=== PATIENT | female | born 1930 | race Caucasian/White ===

== ENCOUNTER 2016-07-19 18:53 | Emergency (ER) | payer MEDICARE, MEDICAID ==
[2016-07-19 19:05] VITALS: BP 167/50; PULSE 98; RESP 21; O2SAT 100
--- NOTE | 2016-07-19 19:34 | ED.REPORT ---
HPI-Trauma Minor / Fall Date of Service Jul 19, 2016 ED Provider: Geronimo Garcia MD An 85 year old female with a history of dementia, hypertension, UTI, and brain surgery for clot removal one month ago is brought to the ED via EMS due to a fall. The pt was found on the ground with her wheelchair on top of her by staff at [facility] where she resides. Per pt's son, were attending another individual in the dining room when the pt attempted to stand and fell. She now has an abrasion on the left side of her head. The pt's son states that she has a history of falls. Nursing Notes Stated Complaint: GLF Chief Complaint: Head, Face, Neck Trauma Nursing Notes Reviewed: Yes Allergies: Coded Allergies: Egg Derived (Unverified Allergy, Unknown, 06/21/16) Estrogens (Unverified Allergy, Unknown, 06/21/16) coconut (Unverified Allergy, Unknown, 06/21/16) codeine (Unverified Allergy, Unknown, 06/21/16) erythromycin base (Unverified Allergy, Unknown, 06/21/16) fluticasone (Unverified Allergy, Unknown, 06/21/16) gabapentin (Verified Allergy, Unknown, 06/21/16) lithium (Unverified Allergy, Unknown, 06/21/16) peanut (Unverified Allergy, Unknown, 06/21/16) salmeterol (Unverified Allergy, Unknown, 06/21/16) sumatriptan (Unverified Allergy, Unknown, 06/21/16) General Time Seen by MD: 19:30 Chief Complaint Fall Hx Obtained From: Patient, Son, EMS Arrived By: Ambulance Onset Occurred: 31 - 45 minutes ago Symptom Duration: Since onset Recent Healthcare: Recent doctor visit, Recent hospitalization Similar Sx Previous: Yes Risk Factors Head CT Imaging Patient Presents WITHOUT: Loss of Conciousness, PROCEED W/ CONSIDERATIONS Consider Non Contrast CT for: >/= 60 yo Age WITHOUT LOCNo Auto vs Pedestrian, No Fall > 3ft., No Vomiting RF Statements: Risk factors reviewed Past Medical History Past Medical History Notes: Marc Valenzuela (son):[phone], Past Medical History Dementia Hx of UTIs Hypertension Falls Past Surgical History brain surgery for clot removal 05/2016 Family History Noncontributory Social History The patient lives at [facility] in the dementia care unit Other Social History: Good social support, Local resident Ambulatory Status Independent Review of Systems Unable to Obtain ROS Mental status Physical Exam Initial Vital Signs Vital Signs (First) Date Time Temp Pulse Resp B/P Pulse Ox O2 Delivery O2 Flow Rate FiO2 07/19/16 19:05 37.6 98 21 167/50 100 07/19/16 20:04 Room Air Initial VS: Reviewed General/Constitutional: Awake, Alert moving all extremities Neck: Atraumatic, Supple, Full range of motion Head / Eyes: Normocephalic, PERRL, EOMI left temporal contusion ENT: Atraumatic, Airway patent, Mucous membranes moist Respiratory / Chest: Atraumatic, Breath sounds NL, Breath sounds = bilat, No respiratory distress Cardiovascular: Heart rate NL, Regular rhythm, Heart sounds NL Abdomen: Atraumatic, Soft, Non-tender Back: Atraumatic, Full range of motion Upper Extremity / MS: Atraumatic, Full range of motion Lower Extremity / Pelvis / MS: Atraumatic, Full range of motion Skin: Color NL, No rash, Warm, Dry Neurologic: Speech NL, No motor deficits, No sensory deficits Psychiatric: Affect NL, Mood NL Interpretation & Diagnostics CT Head Interpretation IMPRESSION: No acute intracranial abnormality is identified. No recurrence of the right subdural hematoma is seen. Number holes are present. There is now a subcutaneous hematoma in the left frontoparietal region. Atrophic changes are present as before. Dictated by: Ever Jorge M.D. on 07/19/2016 at 20:37 Approved by: Ever Jorge M.D. on 07/19/2016 at 20:41 Interpretation / Wet Read by: Interpret - Radiologist Re-Eval/Medical Decision Source of Hx: Old records Re-Evaluation/Progress : Time of Eval: 21:17 Patient Status: Condition improved Re-Evaluation/Progress Note: Pt rechecked, who is resting comfortably. Pt and family are informed of radiology results, diagnosis, and plan for discharge. The pt and family understand and agree with the plan. All questions are addressed at this time. Counseled Regarding: Diagnosis, Lab results, Need for follow-up, When/why to return to ED Discharge & Departure Impression: Primary Impression: Contusion Encounter type: initial encounter Contusion area: head Contusion of head detail: scalp Qualified Code: S00.03XA - Contusion of scalp, initial encounter Additional Impression: Fall from ground level Disposition: Home Discharge Condition All VS Reviewed: Yes Condition: Stable Patient Instructions: Minor Head Injury (ED) Additional Instructions: In the ED today we did an exam and CT brain. there is a bump on her scalp but no intracranial injury. Resume previous care. Return to ED for severe headache , if not alert to baseline or if having frequent vomiting. Referrals: Milton Jiménez MD (PCP) Scribe Attestation Portions of this note were transcribed by Linda Ibarra I, Dr. Garcia personally performed the history, physical exam and medical decision-making; I reviewed and confirmed the accuracy of the information in the transcribed note. Signed by: Juliocesar Sands, 07/19/16 and 21:24. copies to: Milton Jiménez MD, Donald L MD Jul 19, 2016 19:34 LINDA IBARRA Jul 19, 2016 20:06
[2016-07-19 20:04] VITALS: BP 125/89; PULSE 97; RESP 17; O2SAT 100
--- NOTE | 2016-07-19 20:43 | DRSVH ---
PROCEDURE: CT BRAIN WITHOUT CONTRAST ([id number]) INDICATIONS: head injury/ground level fall TECHNIQUE: Noncontrast 4.5 mm thick angled axial sections acquired from the foramen magnum to the vertex, with c oronal reformats. COMPARISON: [facility], CT, CT BRAIN WO CON, 06/21/2016, 10:59. FINDINGS: Image quality: Excellent. CSF spaces: Basal cisterns are patent. No extra-axial fluid collections. The ventricles are symmet lizeth in size and shape. Brain: No intracranial bleeds or masses. There is cerebral volume loss for age, with resultant vent ricular and sulcal prominence. There are periventricular and deep white matter chronic small vessel ischemic changes. 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 It is unchanged. The subdu ral hematoma seen previously over the right frontoparietal region has been evacuated. There is intrac ranial internal carotid artery atherosclerosis. Skull and face: Since the previous study 2 peter holes have been placed in the right frontal cortex. Calvarium and visualized facial bones appear intact, without suspicious lesions. Sinuses: Visualized sinuses and mastoids are clear. IMPRESSION: No acute intracranial abnormality is identified. No recurrence of the right subdural hematoma is seen . Number holes are present. There is now a subcutaneous hematoma in the left frontoparietal region. Atrophic changes are present as before. Dictated by: Ever Jorge M.D. on 07/19/2016 at 20:37 Approved by: Ever Jorge M.D. on 07/19/2016 at 20:41
[2016-07-19 21:31] VITALS: BP 114/71; PULSE 95; RESP 17; O2SAT 100
== END 2016-07-19 21:33 | disposition home or self-care (01) ==
LOC: EDBD 18:53 → SED 18:53 → EDUNIT# 18:53 → SED 21:33
DX: S00.03XA Contusion of scalp, initial encounter (principal); W05.0XXA Fall from non-moving wheelchair, initial encounter; Y93.89 Activity, other specified; Y92.128 Other place in nursing home as the place of occurrence of the external cause; Y99.8 Other external cause status; F03.90 Unspecified dementia, unspecified severity, without behavioral disturbance, psychotic disturbance, mood disturbance, and anxiety; I10 Essential (primary) hypertension; Z88.1 Allergy status to other antibiotic agents; Z88.5 Allergy status to narcotic agent; Z88.8 Allergy status to other drugs, medicaments and biological substances; Z91.012 Allergy to eggs; Z91.018 Allergy to other foods; Z91.010 Allergy to peanuts